=== PATIENT | male | born 1990 | race Hispanic/Latino ===

== ENCOUNTER 2018-10-01 12:02 | Emergency (ER) | payer OTHER ==
[2018-10-01] MEDS ORDERED: MORPHINE SULFATE 4 MG/1ML SYG ONE ×3 (12:10→13:52)
[2018-10-01] MEDS ORDERED: MORPHINE SULFATE 8 MG/ML VIAL ONE (12:52)
[2018-10-01] MEDS ORDERED: CEFAZOLIN SODIUM 1 GM VIAL ONE (13:51)
[2018-10-01] MEDS ORDERED: SODIUM CHLORIDE 0.9% 100 ML IV ONE (13:52)
[2018-10-01] MEDS ORDERED: TETANUS/DIPHTHERIA TOXOID [ADULT] 0.5 ML VIAL IM ONE (14:38)
== END 2018-10-01 16:23 | disposition short-term general hospital (02) ==
LOC: EDH 12:02
DX: S82.391A Other fracture of lower end of right tibia, initial encounter for closed fracture (principal); S82.831A Other fracture of upper and lower end of right fibula, initial encounter for closed fracture; W11.XXXA Fall on and from ladder, initial encounter; Y93.89 Activity, other specified; Y92.69 Other specified industrial and construction area as the place of occurrence of the external cause
CPT/HCPCS: 29515; 73590; 73630; 90471; 90714; 96365; 96375 ×2; 96376; 99285; J0690; J2270 ×4; 96374